=== PATIENT | male | born 1995 | race African-American/Black ===

== ENCOUNTER 2019-07-29 08:08 | Inpatient (IN) | payer OTHER ==
[~2019-07-29] VITALS: Ht 175.3 cm; Wt 77.1 kg
[2019-07-29] MEDS ORDERED: SODIUM CHLORIDE 0.9% 1,000 ML IV ONE (08:51)
[2019-07-29] MEDS ORDERED: MORPHINE SULFATE 4 MG/ML CPJ (NOT FOR IM USE) IV STA ×2 (08:51→10:04)
[2019-07-29] MEDS ORDERED: ONDANSETRON HCL 4MG/2ML INJ IV STA (08:51)
[2019-07-29 09:08] LABS: BASOPHILS % 0.8 % (0.0-2.0); EOSINOPHILS % 0.4 % (0.0-5.0); HEMATOCRIT. 22.7 % (42.0-52.0); HEMOGLOBIN. 7.9 g/dL (14.0-18.0); LYMPHOCYTES % 23.9 % (20.0-50.0); MEAN CORPUSCULAR HEMOGLOBIN 32.5 pg (28.0-32.0); MEAN CORPUSCULAR VOLUME 93.9 fL (80.0-94.0); MEAN PLATELET VOLUME 8.1 fl (7.4-10.4); MONOCYTES % 8.2 % (2.0-8.0); NEUTROPHILS % 66.7 % (40.0-76.0); PLATELET 138 x1000/uL (130-400); RED BLOOD CELL COUNT 2.42 mill/uL (4.7-6.1); RED CELL DISTRIBUTION WIDTH 29.8 % (11.6-14.6)
[2019-07-29 09:14] LABS: CHLORIDE 105 mEq/L (98-107)
[2019-07-29 09:28] LABS: PLATELET ESTIMATE NORMAL
[2019-07-29] MEDS ORDERED: KETOROLAC 15MG/ML VIAL IV ONE (10:15)
[2019-07-29 11:38] VITALS: BP 117/64
[2019-07-29] MEDS ORDERED: HYDR500C18 MT ×2 (11:56→17:54)
[2019-07-29 12:01] VITALS: BP 118/65
[2019-07-29] MEDS ORDERED: MORPHINE SULFATE 2 MG/ML CPJ (NOT FOR IM USE) IV PRN (13:15)
[2019-07-29] MEDS ORDERED: ONDANSETRON HCL 4MG/2ML INJ IV PRN (13:15)
[2019-07-29] MEDS ORDERED: CLONIDINE 0.1MG TABLET PO PRN (13:15)
[2019-07-29] MEDS ORDERED: MORPHINE SULFATE 4 MG/ML CPJ (NOT FOR IM USE) IV PRN (14:00)
[2019-07-29] MEDS: HYDROMORPHONE HCL/PF 2MG/ML CPJ IV PRN ×2 (16:50→20:51)
[2019-07-29 20:00] VITALS: BP 124/55
[2019-07-30] VITALS: BP 109/69
[2019-07-30] MEDS: HYDROMORPHONE HCL/PF 2MG/ML CPJ IV PRN ×3 (00:59→11:25)
[2019-07-30] MEDS: SODIUM CHLORIDE 0.9% 1,000 ML IV SCH ×2 (01:06→09:18)
[2019-07-30 04:00] VITALS: BP 125/64
[2019-07-30] MEDS ORDERED: ACETAMINOPHEN 650MG/20.3ML UDC PO PRN (05:45)
[2019-07-30] MEDS: ACETAMINOPHEN 325MG TABLET PO PRN ×2 (06:09→16:07)
[2019-07-30 07:24] LABS: CHLORIDE 99 mEq/L (98-107)
[2019-07-30 07:31] LABS: HEMATOCRIT. 21.2 % (42.0-52.0); HEMOGLOBIN. 7.4 g/dL (14.0-18.0); MEAN CORPUSCULAR HEMOGLOBIN 32.7 pg (28.0-32.0); MEAN CORPUSCULAR VOLUME 93.3 fL (80.0-94.0); MEAN PLATELET VOLUME 8.8 fl (7.4-10.4); PLATELET 156 x1000/uL (130-400); RED BLOOD CELL COUNT 2.27 mill/uL (4.7-6.1); RED CELL DISTRIBUTION WIDTH 28.6 % (11.6-14.6)
[2019-07-30 08:00] VITALS: BP 122/68
[2019-07-30] MEDS ORDERED: FOLIC ACID 1MG TABLET PO SCH (09:00)
[2019-07-30 12:00] VITALS: BP 137/70
[2019-07-30 13:58] LABS: NUCLEATED RED BLOOD CELLS 21 /100 WBC; PLATELET ESTIMATE NORMAL
[2019-07-30 15:27] VITALS: BP 137/70
[2019-07-30 16:00] VITALS: BP 118/78
[2019-07-30] MEDS ORDERED: HYDROXYUREA 500MG CAPSULE PO SCH (21:00)
== END 2019-07-30 16:47 | disposition home or self-care (01) | DRG 812 ==
LOC: ER 08:29 → 6EST 10:29 → EDBEDREQ 10:34 → ENRESERV 10:37
PROVIDERS: ADMIT Hospitalist; ATTEND Hospitalist
DX: D57.00 Hb-SS disease with crisis, unspecified (principal); D63.8 Anemia in other chronic diseases classified elsewhere; Z79.899 Other long term (current) drug therapy
CPT/HCPCS: 36415; 71045; 85044; 93970; 99285; J1170; J1885; J2270; J2405; J7030